=== PATIENT | female | born 1960 | race Caucasian/White ===

== ENCOUNTER → 2016-05-19 16:49 | Outpatient (CLI) | payer OTHER ==
[2011-01-12 11:07] VITALS: BMI 34.0
== END | disposition home or self-care (01) ==
LOC: D.MAMMO 08:30
DX: N64.4 Mastodynia (principal)

== ENCOUNTER → 2019-08-24 08:31 | Outpatient (CLI) | payer OTHER ==
[2011-01-12 11:07] VITALS: BMI 34.0
== END | disposition home or self-care (01) ==
LOC: D.RAD 08:30 → D.MRI 09:30
PROVIDERS: ATTEND Clinical Nurse Specialist Family Health
DX: M25.512 Pain in left shoulder (principal)